=== PATIENT | male | born 1970 | race Caucasian/White ===

== ENCOUNTER 2016-09-10 21:21 | Emergency (ER) | payer SELFPAY ==
[~2016-09-10] VITALS: Ht 172.7 cm; Wt 96.1 kg
[~2016-09-10 21:21] MED LIST: ALBUTEROL SULF8.5 GM; ATORVASTATIN 20 MG T PO; ATORVASTATIN CA80 MG PO; CYMBALTA30 MG PO; LEVBID0.375 MG PO; LORAZEPAM0.5 MG PO; LYRICA200 MG PO; NEURONTIN300 MG PO; TOPROL XL100 MG PO; TRAMADOL HCL50 MG PO; ZOFRAN ODT4 MG PO
[2016-09-10 23:48] VITALS: BP 143/86
== END 2016-09-10 23:49 | disposition home or self-care (01) ==
LOC: EME 21:21
DX: F10.129 Alcohol abuse with intoxication, unspecified (principal); Y90.4 Blood alcohol level of 80-99 mg/100 ml; F43.23 Adjustment disorder with mixed anxiety and depressed mood; G89.29 Other chronic pain; E78.5 Hyperlipidemia, unspecified; I10 Essential (primary) hypertension; F17.200 Nicotine dependence, unspecified, uncomplicated
CPT/HCPCS: 90837; 99281; 99284; G0480

== ENCOUNTER 2016-11-14 08:34 | Emergency (ER) | payer OTHER ==
[~2016-11-14] VITALS: Ht 172.7 cm; Wt 103.7 kg
[2016-11-14 09:48] VITALS: BP 124/96
[2016-11-14] MEDS ORDERED: PERCOCET 5/31 TABLET PO (09:48)
== END 2016-11-14 10:41 | disposition home or self-care (01) ==
LOC: EME 08:34
PROC: 3E0234Z Introduction of Serum, Toxoid and Vaccine into Muscle, Percutaneous Approach (ICD-10-PCS; principal; 2016-11-14)
DX: S22.42XA Multiple fractures of ribs, left side, initial encounter for closed fracture (principal); S50.312A Abrasion of left elbow, initial encounter; M54.2 Cervicalgia; W11.XXXA Fall on and from ladder, initial encounter; Z23 Encounter for immunization; I10 Essential (primary) hypertension; E78.5 Hyperlipidemia, unspecified; G89.29 Other chronic pain; Z79.891 Long term (current) use of opiate analgesic; F17.200 Nicotine dependence, unspecified, uncomplicated
CPT/HCPCS: 71101; 99281; 99283; J1885

== ENCOUNTER 2016-11-17 10:21 | Emergency (ER) | payer OTHER ==
[~2016-11-17] VITALS: Ht 172.7 cm; Wt 106.3 kg
[~2016-11-17 10:21] MED LIST changes: +PERCOCET 5/31 TABLET PO
[2016-11-17 11:33] LABS: HEMATOCRIT 47.5 % (38.0-50.0); MCH 33.4 PG (29.0-34.0); MCHC 33.7 G/DL (30.0-36.0); MCV 99.2 FL (86-99); MEAN PLAT.VOLUME 9.2 uM^3 (9.0-12.4); PLATELET COUNT 361 K/uL (156-360); RBC DIS.WIDTH-CV 12.9 % (11.8-14.6); RED BLOOD COUNT 4.79 M/uL (4.00-5.50)
[2016-11-17 11:35] LABS: WHITE BLOOD COUNT 13.8 K/uL (4.1-10.2)
[2016-11-17 11:45] LABS: CHLORIDE 107 mEq/L (99-109); POTASSIUM 5.2 mEq/L (3.7-5.4); SODIUM 143 mEq/L (136-147)
[2016-11-17 11:47] LABS: GLUCOSE 109 mg/dL (70-99)
[2016-11-17 11:48] LABS: ANION GAP 12 MEQ/L (2-14)
[2016-11-17 11:51] LABS: GFR ESTIMATE (CALCULATED) > 59 mL/min/; UREA NITROGEN (BUN) 19 mg/dL (9-23)
[2016-11-17 11:53] LABS: TROP-I INTERPRETATION NEGATIVE; TROPONIN-I < 0.01 ng/mL (0.0-0.30)
[2016-11-17] MEDS ORDERED: NAPROXEN500 MG PO (13:47)
[2016-11-17 13:59] VITALS: BP 160/96
== END 2016-11-17 14:01 | disposition home or self-care (01) ==
LOC: EME 10:21
DX: S22.42XD Multiple fractures of ribs, left side, subsequent encounter for fracture with routine healing (principal); W11.XXXD Fall on and from ladder, subsequent encounter; M54.12 Radiculopathy, cervical region; R05 Cough; G89.29 Other chronic pain; I10 Essential (primary) hypertension; E78.5 Hyperlipidemia, unspecified; Z79.891 Long term (current) use of opiate analgesic; F17.200 Nicotine dependence, unspecified, uncomplicated
CPT/HCPCS: 71020; 71275; 80048; 84484; 85027; 93005; 99281; 99284; J7030

== ENCOUNTER 2016-11-23 03:05 | Emergency (ER) | payer OTHER ==
[~2016-11-23] VITALS: Ht 175.3 cm; Wt 100.9 kg
[~2016-11-23 03:05] MED LIST changes: +NAPROXEN500 MG PO
[2016-11-23 04:41] LABS: HEMATOCRIT 47.5 % (38.0-50.0); MCH 33.7 PG (29.0-34.0); MCHC 34.7 G/DL (30.0-36.0); MCV 96.9 FL (86-99); PLATELET COUNT 319 K/uL (156-360); RBC DIS.WIDTH-CV 12.6 % (11.8-14.6); RBC DIS.WIDTH-SD 45.1 % (39-53); WHITE BLOOD COUNT 9.7 K/uL (4.1-10.2)
[2016-11-23 04:55] LABS: CHLORIDE 106 mEq/L (99-109); SODIUM 140 mEq/L (136-147)
[2016-11-23 04:57] LABS: GLUCOSE 106 mg/dL (70-99)
[2016-11-23 04:58] LABS: ANION GAP 11 MEQ/L (2-14)
[2016-11-23 05:01] LABS: GFR ESTIMATE (CALCULATED) > 59 mL/min/
[2016-11-23 05:02] LABS: TROP-I INTERPRETATION NEGATIVE; TROPONIN-I < 0.01 ng/mL (0.0-0.30); UREA NITROGEN (BUN) 16 mg/dL (9-23)
[2016-11-23] MEDS ORDERED: ATIVAN1 MG PO (05:02)
[2016-11-23 05:18] LABS: POTASSIUM 3.9 mEq/L (3.7-5.4)
[2016-11-23 05:29] VITALS: BP 152/98
== END 2016-11-23 05:29 | disposition home or self-care (01) ==
LOC: EME 03:05
PROVIDERS: Physician Assistant
DX: F41.1 Generalized anxiety disorder (principal); R07.9 Chest pain, unspecified; F17.200 Nicotine dependence, unspecified, uncomplicated; I10 Essential (primary) hypertension; E78.5 Hyperlipidemia, unspecified; M54.5 Low back pain; M54.2 Cervicalgia; G89.29 Other chronic pain
CPT/HCPCS: 71020; 80048; 84484; 85027; 93005; 99281; 99284

== ENCOUNTER 2017-04-15 20:38 | Emergency (ER) | payer OTHER ==
[~2017-04-15] VITALS: Ht 175.3 cm; Wt 99.7 kg
[~2017-04-15 20:38] MED LIST changes: +ATIVAN1 MG PO
[2017-04-15 23:11] VITALS: BP 162/85
== END 2017-04-15 23:12 ==
LOC: EME 20:38
DX: F10.129 Alcohol abuse with intoxication, unspecified (principal); Z78.1 Physical restraint status; E78.5 Hyperlipidemia, unspecified; I10 Essential (primary) hypertension; M54.2 Cervicalgia; M54.9 Dorsalgia, unspecified; G89.29 Other chronic pain; F17.200 Nicotine dependence, unspecified, uncomplicated
CPT/HCPCS: 99281; 99285; J1630; J2060